=== PATIENT | female | born 2000 | race Caucasian/White ===

== ENCOUNTER 2025-04-11 10:24 | Emergency (ER) | payer OTHER, SELFPAY ==
[2025-04-11 10:36] VITALS: BP 114/70; PULSE 94; RESP 16; TEMP 37.2; O2SAT 100
[2025-04-11 10:48] LABS: EDUAAPPEAR Cloudy; EDUABILI Negative (Negative); EDUABLOOD Trace (Negative); EDUACOLOR1 Yellow; EDUAGLUCOSE Negative (Negative); EDUAKETONE Negative (Negative); EDUALEUKO Trace (Negative); EDUANITRATE Positive (Negative); EDUAPH 7.0; EDUAPROTEIN Negative (Negative); EDUASPGRAVITY 1.010; EDUAUROBILI 0.2
--- NOTE | 2025-04-11 11:08 | ED_ITS ---
HPI - General Adult General Chief complaint: Urogenital-Female Stated complaint: cloudy urine Source: patient Mode of arrival: ambulatory Limitations: no limitations History of Present Illness HPI narrative: Pt is a 24 y/o female presenting with c/o cloudy urine. Additional sx reported include malodorous urine. Sx began 3 days ago. No concern for STI or . 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 No additional complaints Related Data Home Medications ?Medication ?Instructions ?Recorded ?Confirmed ?Last Taken ?Type copper 380 square mm intrauterine 1 device intrauterin e ONCE 09/05/24 09/05/24 Unknown History device (ParaGard T 380A) Allergies Allergy/AdvReac Type Severity Reaction Status Date / Time No Known Allergies Allergy Verified 04/11/25 10:39 Review of Systems Review of Systems: CONSTITUTIONAL: Denies body aches, fever, chills, or sweats. EYES: Denies visual changes, redness, or discharge. ENT: Denies rhinorrhea, congestion, sore throat, or otalgia. CARDIOVASCULAR: Denies chest pain, palpitations, or edema. RESPIRATORY: Denies cough or dyspnea. GASTROINTESTINAL: Denies abdominal pain, nausea, vomiting, or diarrhea. GENITOURINARY: Reports cloudy urine, malodorous urine denies dysuria or hematuria. SKIN: Denies rash, itching, or wounds. MUSCULOSKELETAL: Denies back pain, joint pain, or myalgia. NEUROLOGIC: Denies headache, numbness, tingling, or weakness. PSYCH: Denies depression or anxiety. PMFSH Past Medical History Medical History Allergies Surgical History Surgical History Encounter for insertion of ParaGard IUD 2020 H/O wisdom tooth extraction Hx of tonsillectomy Family History Family History Grandparent Hypertension paternal grandfather Social History Social History Smoking status: Current every day smoker Tobacco type: e-cigarettes/vaping Alcohol intake: current Alcohol use details: occasionally Substance use: current Substance use type: marijuana Do You Feel Safe in your Home?: Yes Lack of Transportation: No Lack of Food: Sometimes True Current Housing: I Have Housing Concerned About Future Housing: Decline to Answer Difficulty Paying Gas/Electric Bills: Decline to Answer Difficulty Paying for Meds: Decline to Answer Currently Unemployed: Decline to Answer Education: High School Diploma/GED Difficulty w/ Childcare or Family Care: No Living arrangements: with family Occupation/Education: occupation Gender identity (if verbalized by the patient): Female Sexual Orientation (if Verbalized by the Patient): Bisexual Exam Narrative: GENERAL: Well-appearing, well-nourished, and in no acute distress. HEAD: Normocephalic, atraumatic. EYES: EOMI. No redness or drainage. Conjunctivae normal. ENT: Mucous membranes pink and moist NECK: Normal AROM. Supple. CHEST: No respiratory distress HEART: Regular rate ABDOMEN: Soft, nontender, nondistended, normal active bowel sounds. No CVAT EXTREMITIES: Normal range of motion. SKIN: Warm, dry, no rash. Capillary refill normal. Normal skin turgor. NEURO: No focal deficits. Alert and oriented x3. Gait steady. PSYCH: Normal affect. No signs of depression or anxiety. Course Course Level of Care: Express Care Visit Vital Signs Vital signs: Vital Signs Temperature 98.9 F 04/11/25 10:36 Pulse Rate 94 04/11/25 10:36 Respiratory Rate 16 04/11/25 10:36 Blood Pressure 114/70 04/11/25 10:36 Pulse Oximetry 100 04/11/25 10:36 Temperature 98.9 F 04/11/25 10:36 Pulse Rate 94 04/11/25 10:36 Respiratory Rate 16 04/11/25 10:36 Blood Pressure 114/70 04/11/25 10:36 Pulse Oximetry 100 04/11/25 10:36 Medical Decision Making Vital Signs Vital Signs: Vital Signs Temperature 98.9 F 04/11/25 10:36 Pulse Rate 94 04/11/25 10:36 Respiratory Rate 16 04/11/25 10:36 Blood Pressure 114/70 04/11/25 10:36 Pulse Oximetry 100 04/11/25 10:36 Temperature 98.9 F 04/11/25 10:36 Pulse Rate 94 04/11/25 10:36 Respiratory Rate 16 04/11/25 10:36 Blood Pressure 114/70 04/11/25 10:36 Pulse Oximetry 100 04/11/25 10:36 Lab Data Lab results reviewed: Yes I reviewed the patient's lab results. Labs: Lab Results 04/11/25 Range/Units 10:36 POC Urine Color Yellow POC Urine Clarity Cloudy POC Urine pH 7.0 POC Ur Specif [place] 1.010 POC Urine Protein Negative (Negative) POC Ur Glucose (UA) Negative (Negative) POC Urine Ketones Negative (Negative) POC Urine Blood Trace (Negative) POC Urine Nitrite Positive (Negative) POC Urine Bilirubin Negative (Negative) POC Urine Urobilinogen 0.2 POC U Leukocyte Esteras Trace (Negative) Discharge Plan Discharge Clinical Impression: Dysuria Patient Disposition: Home Condition: Stable Instructions: Antibiotic Form, Urinary Tract Infection in Women (ED) Additional Instructions: Go straight to ER should your symptoms become worse or should any new symptoms develop Patient Language: Vietnamese Prescriptions: New nitrofurantoin monohyd/m-cryst [Macrobid] 100 mg capsule 100 mg PO Q12H 5 Days Qty: 10 0RF Rx Instructions: must administer with a meal/food No Action ParaGard T 380A 380 square mm intrauterine device 1 device intrauterine ONCE Rx Instructions: as a single dose Follow-up/Referrals: PHYSICIAN,STREETCAR REPAIRER HELPER [Primary Care Provider, Internal Medicine] - 04/12/25 Time of Disposition: 11:06
== END 2025-04-11 11:14 | disposition home or self-care (01) ==
PROVIDERS: Emergency Provider Registered Nurse
DX: R30.0 Dysuria (principal); F17.290 Nicotine dependence, other tobacco product, uncomplicated
CPT/HCPCS: 81003; 87077; 87086; 87186; 99213; G0463

== ENCOUNTER 2025-04-14 13:14 | Emergency (ER) | payer OTHER, SELFPAY ==
[2025-04-14 13:29] VITALS: BP 115/78; PULSE 88; RESP 16; TEMP 36.8; O2SAT 100
[2025-04-14 14:08] LABS: EDSTREPNEGPOS1 Negative (Negative)
--- NOTE | 2025-04-14 14:12 | ED_ITS ---
HPI - URI/Sore Throat General Chief Complaint: Upper Respiratory Infection Stated Complaint: Ear Pressure/Sore Throat patient presents to the [facility] with complaints right ear pain, right- sided sore throat, pain on the right side of jaw with nasal congestion, nasal drainage, fatigue and headache that began about 1 week ago. Patient reports she was having the symptoms when she was evaluated here for UTI but they were minimal and that they were more allergy in nature. Noted UTI symptoms are significantly improved But the upper respiratory symptoms are worsened. Denies fever, chills, body aches, shortness of breath, difficulty swallowing, dizziness. Related Data Home Medications ?Medication ?Instructions ?Recorded ?Confirmed ?Last Taken ?Type copper 380 square mm intrauterine 1 device intrauterin e ONCE 09/05/24 09/05/24 Unknown History device (ParaGard T 380A) Allergies Allergy/AdvReac Type Severity Reaction Status Date / Time No Known Allergies Allergy Verified 04/14/25 13:50 Review of Systems Constitutional: Constitutional: Reports as per HPI, Denies chills, Reports fatigue, Denies fever(s) and Denies weakness Eyes: Eyes: Reports no additional eye complaints ENT: Reports as per HPI, Denies vertigo, Denies dizziness, Reports nasal congestion and Reports sore throat Comments: right sided jaw pain, right ear pain Cardiovascular: Cardiovascular: Reports no additional cardiovascular complaints Respiratory: Respiratory: Reports as per HPI, Reports chest congestion, Reports cough, Denies dyspnea and Denies wheezing Gastrointestinal: Gastrointestinal: Reports as per HPI, Denies abdominal pain, Denies diarrhea, Denies nausea and Denies vomiting Genitourinary: Genitourinary: Reports no additional female genitourinary complaints Musculoskeletal: Musculoskeletal: Reports as per HPI, Denies myalgias and Denies arthralgias Integumentary/Breasts: Skin/Breast: Reports as per HPI, Denies erythema and Denies rash Neurologic: Reports as per HPI, Denies vertigo, Denies dizziness, Reports headache(s), Denies numbness and Denies weakness Psychiatric: Psychiatric: Reports no additional psychiatric complaints Endocrine: Endocrine: Reports no additional endocrine complaints Hematologic/Lymphatic: Hematologic/Lymphatic: Reports no additional hematol ogic/lymphatic complaints Allergic/Immunologic: Allergic/Immunologic: Reports as per HPI Comments: Seasonal allergies PMFSH Past Medical History Medical History Allergies Surgical History Surgical History Encounter for insertion of ParaGard IUD 2020 H/O wisdom tooth extraction Hx of tonsillectomy Family History Family History Grandparent Hypertension paternal grandfather Social History Social History Smoking status: Current every day smoker Tobacco type: e-cigarettes/vaping Alcohol intake: current Alcohol use details: occasionally Substance use: current Substance use type: marijuana Do You Feel Safe in your Home?: Yes Lack of Transportation: No Lack of Food: Sometimes True Current Housing: I Have Housing Concerned About Future Housing: Decline to Answer Difficulty Paying Gas/Electric Bills: Decline to Answer Difficulty Paying for Meds: Decline to Answer Currently Unemployed: Decline to Answer Education: High School Diploma/GED Difficulty w/ Childcare or Family Care: No Living arrangements: with family Occupation/Education: occupation Gender identity (if verbalized by the patient): Female Sexual Orientation (if Verbalized by the Patient): Bisexual Exam Const: General: healthy appearing and no acute distress Nutritional Appearance: well nourished Orientation/consciousness: patient oriented x3 Limitations: no limitations HENMT: Head: normal to inspection Ears: external ears normal and TM's abnormal bilaterally ( moderate erythema with dullness some loss of bony landmarks right TM) Face/Nose/Sinus: Normal external nose present and Normal nares present Face and sinus: normal facial exam and sinuses nontender Mouth: Yes Normal oral and palatal mucosa present, Yes lip normal and Yes moist mucous membranes Throat: posterior oropharynx abnormal ( moderate erythema and edema with no exudate) Other: left TM normal Eyes: Conjunctivae: conjunctivae normal Pupils: Equal, round and reactive pupils present EOM: EOMs intact bilaterally Direct Ophthalmoscopy: no photophobia Neck: Neck: normal visual inspection and lymphadenopathy ( minimal right anterior cervical) Resp: Effort & Inspection: normal respiratory effort Auscultation: clear to auscultation bilaterally Cardio: Rate: regular rate Rhythm: regular rhythm Skin: General skin exam: normal color Rashes: no rashes Wounds: no wounds Neuro: General: patient oriented x3 Cranial nerves: Yes Nystagmus not present Speech: normal speech Gait exam (Neuro): Normal gait present Psych: Mental Status: mental status grossly normal Affect: normal affect Attitude: cooperative Course Course Level of Care: Express Care Visit Vital Signs Vital signs: Vital Signs Temperature 98.3 F 04/14/25 13:29 Pulse Rate 88 04/14/25 13:29 Respiratory Rate 16 04/14/25 13:29 Blood Pressure 115/78 04/14/25 13:29 Pulse Oximetry 100 04/14/25 13:29 Temperature 98.3 F 04/14/25 13:29 Pulse Rate 88 04/14/25 13:29 Respiratory Rate 16 04/14/25 13:29 Blood Pressure 115/78 04/14/25 13:29 Pulse Oximetry 100 04/14/25 13:29 MDM - URI/Sore Throat MDM Narrative Medical decision making narrative: strep testing is negative. Will test for [place] as well symptoms have been present for 1 week. AOM also noted right side The patient was evaluated by myself in the express care. History is obtained from patient who is an independent historian and physical exam was performed. Available medical records were reviewed at this time. Exam findings show no acute concerns or changes; patient is non-toxic appearing and is in no distress. Patient is appropriate for outpatient treatment and follow-up. I have evaluated and discussed social determinants of health with the patient that could potentially impact subsequent diagnosis and treatment plans. Differential diagnosis and treatment plan were discussed with the patient. Patient agrees with discussion and after shared medical decision making agrees with plan of care. All questions were answered to the patient's satisfaction. Differential Diagnosis Differential diagnosis: Likely upper respiratory infection, croup, otitis media, sinusitis, viral infection and pharyngitis Medical Records Attestation: I reviewed the patient's medical records. Lab Data Attestation: I reviewed the patient's lab results. Lab results narrative: Strep negative, mono negative. no need for culture due to treating for AOM Labs: Lab Results 04/14/25 Range/Units 14:06 POC Grp A Strep Screen Negative (Negative) Discharge Plan Discharge Clinical Impression: Acute otitis media with effusion of right ear Patient Disposition: Home Condition: Stable Instructions: Antibiotic Form, Ear Infection (AC), Cold Symptoms (ED) Additional Instructions: Take the antibiotics as directed for the entire course. Do not miss any doses. What you are taking antibiotics and is recommended to take a probiotic or have yogurt daily to return the good gut bacteria to your system. This can also help with acute diarrhea while taking antibiotics. A can take 24-48 hours for the antibiotics the cake in to relieve your symptoms continue to take these medications to help with various symptoms: Tylenol or Motrin for pain, headache, or fever Flonase/fluticasone or Nasacort/triamcinolone nasal spray- helps with congestion and nasal drainage. Sudafed/pseudoephedrine helps with sinus pain and congestion. Caution with high blood pressure. Use a humidifier or vaporizer at night. Drink plenty of water. 8-10 glasses per day. Mucinex/guaifenes[place] directed and be sure to take with 8oz of water. Warm compresses over the forehead and cheeks to promote sinus drainage. Return to urgent care or go to the ER for new or worsening symptoms. Follow up with Primary provider if not improved after 1 week. Patient Language: Citizen Of [place] Prescriptions: New azithromycin 250 mg tablet See Rx Instructions .ROUTE .COMPLEX Qty: 6 0RF Rx Instructions: For 250 mg dose pack: take 500 mg today (day 1), then 250 mg for 4 days (days 2-5) No Action nitrofurantoin monohyd/m-cryst [Macrobid] 100 mg capsule 100 mg PO Q12H 5 Days Qty: 10 0RF Rx Instructions: must administer with a meal/food ParaGard T 380A 380 square mm intrauterine device 1 device intrauterine ONCE Rx Instructions: as a single dose Follow-up/Referrals: PHYSICIAN,PORTFOLIO ACCOUNTANT [Primary Care Provider, Internal Medicine] Time of Disposition: 14:26
[2025-04-14 14:26] LABS: EDMONONEGPOS Negative (Negative)
== END 2025-04-14 14:27 | disposition home or self-care (01) ==
PROVIDERS: Emergency Provider Nurse Practitioner Family
DX: H66.91 Otitis media, unspecified, right ear (principal); F17.290 Nicotine dependence, other tobacco product, uncomplicated; F12.90 Cannabis use, unspecified, uncomplicated
CPT/HCPCS: 36416; 86308; 87880; 99213; G0463

== ENCOUNTER 2025-05-11 09:38 | Emergency (ER) | payer OTHER, SELFPAY ==
--- NOTE | 2025-05-11 11:10 | ED.GENADULT ---
HPI - General Adult General Chief complaint: Upper Respiratory Infection Stated complaint: SORE THROAT Source: patient Mode of arrival: ambulatory Limitations: no limitations History of Present Illness HPI narrative: Patient presents for evaluation of sore throat for the last 3 weeks. Symptoms are worse at night when lying down and also when she wakes from sleep in the morning. She denies any fever, chills, nausea, vomiting, diarrhea. She had negative strep and mono testing. She was recently on azithromycin for an ear infection. She does report fullness in the left ear. She quit vaping about three weeks ago. She has been using some herbal supplements for her symptoms. She is sexually active with one male partner but she is his first sex partner. Related Data Home Medications ?Medication ?Instructions ?Recorded ?Confirmed ?Last Taken ?Type copper 380 square mm intrauterine 1 device intrauterine ONCE 09/05/24 09/05/24 Unknown History device (ParaGard T 380A) Allergies Allergy/AdvReac Type Severity Reaction Status Date / Time No Known Allergies Allergy Verified 04/14/25 13:50 Review of Systems Review of Systems: CONSTITUTIONAL: Denies fever, chills, or sweats. EYES: Denies visual changes, redness, or discharge. ENT: Reports sore throat. Denies rhinorrhea, congestion, or otalgia. CARDIOVASCULAR: Denies chest pain, palpitations, or edema. RESPIRATORY: Denies cough or dyspnea. GASTROINTESTINAL: Denies abdominal pain, nausea, vomiting, or diarrhea. GENITOURINARY: Denies dysuria or hematuria. SKIN: Denies rash or itching. MUSCULOSKELETAL: Denies back pain, joint pain, or myalgia. NEUROLOGIC: Denies headache, numbness, dizziness, or weakness. PSYCHIATRIC: Denies anxiety or depression. [facility] Past Medical History Medical History Allergies Surgical History Surgical History Encounter for insertion of ParaGard IUD 2020 H/O wisdom tooth extraction Hx of tonsillectomy Family History Family History Grandparent Hypertension paternal grandfather Social History Social History Smoking status: Current every day smoker Tobacco type: e-cigarettes/vaping Alcohol intake: current Alcohol use details: occasionally Substance use: current Substance use type: marijuana Do You Feel Safe in your Home?: Yes Lack of Transportation: No Lack of Food: Sometimes True Current Housing: I Have Housing Concerned About Future Housing: Decline to Answer Difficulty Paying Gas/Electric Bills: Decline to Answer Difficulty Paying for Meds: Decline to Answer Currently Unemployed: Decline to Answer Education: High School Diploma/GED Difficulty w/ Childcare or Family Care: No Living arrangements: with family Occupation/Education: occupation Gender identity (if verbalized by the patient): Female Sexual Orientation (if Verbalized by the Patient): Bisexual Exam Narrative: GENERAL: Well-appearing, well-nourished, and in no acute distress. HEAD: Normocephalic, atraumatic. EYES: PERRLA and EOMI. ENT: Nares clear, no rhinorrhea or epistaxis. Mucous membranes moist. Oropharynx without tonsillar hypertrophy exudate or other lesions. Bilateral TMs pearly calles nonbulging NECK: Supple. No adenopathy or masses. No carotid bruits or JVD CHEST: Clear to auscultation. No respiratory distress. No wheezes rales or rhonchi HEART: Regular rate and rhythm. No murmur heard. Normal peripheral pulses. ABDOMEN: Soft, nontender, nondistended, normal active bowel sounds. EXTREMITIES: Normal range of motion. No edema. SKIN: Warm, dry, no rash. NEURO: No focal deficits. Alert and oriented x3. PSYCH: Normal mood and affect. Course Course Emergency Course: This is a 24 year old female who presented for evaluation of sore throat. She has already had a negative strep test. [place] negative. Through shared decision making opted to proceed with abx therapy. Will also try PPI as her symptoms are worse when laying down. Follow up with primary provider. Go to the ER for worsening symptoms. Pt in agreement with plan of care. Level of Care: Express Care Visit Discharge Plan Discharge Clinical Impression: Pharyngitis Patient Disposition: Home Condition: Stable Instructions: Antibiotic Form, Pharyngitis (ED) Patient Language: Slovenian Prescriptions: New pantoprazole [Protonix] 40 mg tablet,delayed release (DR/EC) 40 mg PO QAM Qty: 14 0RF amoxicillin-pot clavulanate 875-125 mg tablet 1 tablet PO Q12H Qty: 20 0RF No Action azithromycin 250 mg tablet See Rx Instructions .ROUTE .COMPLEX Qty: 6 0RF Rx Instructions: For 250 mg dose pack: take 500 mg today (day 1), then 250 mg for 4 days (days 2-5) nitrofurantoin monohyd/m-cryst [Macrobid] 100 mg capsule 100 mg PO Q12H 5 Days Qty: 10 0RF Rx Instructions: must administer with a meal/food ParaGard T 380A 380 square mm intrauterine device 1 device intrauterine ONCE Rx Instructions: as a single dose Follow-up/Referrals: Saad Hinkle MD [Physician, Ear, Nose, Throat] Time of Disposition: 11:08
== END 2025-05-11 11:29 | disposition home or self-care (01) ==
PROVIDERS: Emergency Provider Nurse Practitioner
DX: J02.9 Acute pharyngitis, unspecified (principal); F17.290 Nicotine dependence, other tobacco product, uncomplicated
CPT/HCPCS: 99213; G0463